=== PATIENT | female | born 1990 | race Caucasian/White ===

== ENCOUNTER → 2018-09-30 | Day surgery (SDC) | payer OTHER ==
--- NOTE | 2018-10-01 17:02 | PATH ---
Surgical Pathology Report Patient Name: MARKO GARCIA [facility]. Rec. #: [id number] /Age/Gender: 1990 (Age: 28) / F Account: [id number] Location: RADIOLOGY Taken: 09/30/2018 Received: 09/30/2018 Reported: 10/01/2018 Physicians: Logan Cantu M.D. Specimen(s) Received LEFT BREAST 12:00 Clinical History 4.8 cm solid mass left breast 12:00 Final Diagnosis BREAST, LEFT, 12:00, ULTRASOUND GUIDED CORE BIOPSY: BENIGN BREAST PARENCHYMA WITH DENSE STROMAL FIBROSIS. Comment: Suggest clinical and radiologic correlation. Electronically Signed Bridget Loza M.D. Gross Description Received in formalin labeled "left 12:00," are 3 sin-yellow, cylindrical portions of fibroadipose tissue averaging 0.8 cm in length and 0.1 cm in diameter. The specimens are submitted in toto in one cassette. Time to formalin fixation: Less than one minute Total formalin fixation time: Approximately 9 hours. /09/30/2018 [facility]09/30/2018
== END | disposition home or self-care (01) ==
LOC: JMAMMO-SUR 09:03
PROVIDERS: ATTEND Obstetrics & Gynecology
PROC: 0HBU3ZX Excision of Left Breast, Percutaneous Approach, Diagnostic (ICD-10-PCS; principal; 2018-09-30)
DX: N60.32 Fibrosclerosis of left breast (principal)
CPT/HCPCS: 19083; 88305-TC; A4648

== ENCOUNTER 2024-04-04 09:08 | Emergency (ER) | payer OTHER ==
[2024-04-04 09:21] VITALS: BP 110/77; PULSE 59; RESP 20; TEMP 97.7; BMI 26.9
[2024-04-04] MEDS ORDERED: KETOROLAC TROMETHAMINE 30 MG/1 ML VIAL ONE (10:11)
[2024-04-04] MEDS ORDERED: METHOCARBAMOL 500 MG TABLET ONE (10:11)
[2024-04-04] MEDS ORDERED: ACETAMINOPHEN 500 MG TABLET (FP) ONE (10:11)
[2024-04-04] MEDS: KETOROLAC TROMETHAMINE 30 MG/1 ML VIAL IM ONE (10:17)
[2024-04-04] MEDS: ACETAMINOPHEN 500 MG TABLET (FP) PO ONE (10:17)
[2024-04-04] MEDS: METHOCARBAMOL 500 MG TABLET PO ONE (10:17)
== END 2024-04-04 11:41 | disposition home or self-care (01) ==
LOC: JERFT 09:08
PROC: 3E0233Z Introduction of Anti-inflammatory into Muscle, Percutaneous Approach (ICD-10-PCS; principal; 2024-04-04)
DX: M54.50 Low back pain, unspecified (principal); R20.2 Paresthesia of skin; V49.49XA Driver injured in collision with other motor vehicles in traffic accident, initial encounter; Y92.410 Unspecified street and highway as the place of occurrence of the external cause
CPT/HCPCS: 72100-TC-FY; 99284-25